=== PATIENT | female | born 1965 | race Caucasian/White ===

== ENCOUNTER 2019-04-30 23:23 | Inpatient (IN) | payer BC ==
[2019-04-30] MEDS ORDERED: Fentanyl 100 MCG/2 ML VIAL ONE (23:41)
[2019-05-01 01:15] VITALS: BMI 34.3
[2019-05-01] MEDS: Sodium Chloride 0.45% 1,000 ML IV SCH ×2 (01:44→15:37)
[2019-05-01] MEDS: MEROPENEM 1 GM/50 ML 1 GM in Premix Bag 1 BAG IVPB SCH ×2 (01:45→15:37)
[2019-05-01 04:50] LABS: #Eosinphils 0.1 thou/uL (0.0-0.7); #Lymphocytes 2.3 thou/uL (1.20-3.40); #Monocytes 0.9 thou/uL (0.11-0.59); #Neutrophils 8.3 thou/uL (1.40-6.50); %Basophils 0.3 % (0.0-1.0); %Eosinophils 1.1 % (0.0-10.0); %Lymphocytes 19.5 % (21.0-51.0); %Monocytes 7.6 % (0.0-10.0); %Neutrophils 71.5 % (42.0-75.0); Hemoglobin 11.8 g/dL (12.0-16.0); Mean Corpuscular HGB CONC 34.8 g/dL (32.0-36.0); Mean Corpuscular Hemoglobin 32.3 pg (27.0-31.0); Mean Corpuscular Volume 92.6 fL (78.0-98.0); Mean Platelet Volume 7.1 fL (7.4-10.4); Platelet Count 335 thou/uL (130-400); RBC Distribution Width 11.8 % (11.5-14.5); Red Blood Cell (RBC) Count 3.66 mill/uL (4.20-5.40); White Blood Cell (WBC) Count 11.7 thou/uL (4.8-10.8)
[2019-05-01] MEDS: Morphine 2 MG/ML SYRINGE SLOW IVP PRN ×2 (05:45→07:38)
[2019-05-01 06:55] LABS: #Eosinphils 0.2 thou/uL (0.0-0.7); #Lymphocytes 1.8 thou/uL (1.20-3.40); #Monocytes 0.9 thou/uL (0.11-0.59); #Neutrophils 8.6 thou/uL (1.40-6.50); %Basophils 0.3 % (0.0-1.0); %Eosinophils 1.4 % (0.0-10.0); %Lymphocytes 15.6 % (21.0-51.0); %Monocytes 8.1 % (0.0-10.0); %Neutrophils 74.6 % (42.0-75.0); Hemoglobin 11.7 g/dL (12.0-16.0); Mean Corpuscular HGB CONC 34.9 g/dL (32.0-36.0); Mean Corpuscular Hemoglobin 31.8 pg (27.0-31.0); Mean Corpuscular Volume 91.1 fL (78.0-98.0); Mean Platelet Volume 6.9 fL (7.4-10.4); Platelet Count 349 thou/uL (130-400); RBC Distribution Width 11.7 % (11.5-14.5); Red Blood Cell (RBC) Count 3.69 mill/uL (4.20-5.40); White Blood Cell (WBC) Count 11.5 thou/uL (4.8-10.8)
--- NOTE | 2019-05-01 08:22 | HP ---
CHIEF COMPLAINT: Severe abdominal pain. HISTORY OF PRESENT ILLNESS: This is a 53-year-old diabetic female, who says she has had gastroparesis for many years and she had episodes of this, which she describes as epigastric pain, belching of very foul-smelling gas. Then on and Wednesday, she started having some suprapubic pain. Wednesday, it became much worse. Then, she developed some fever. Last night after a bowel movement, it became even worse. She went to the emergency room. Last colonoscopy was 2 to 3 years ago. Mother had colon cancer. This colonoscopy was done at [facility] [place]. She has not eaten anything in 3 days. Her blood sugar was as high as 400. PAST MEDICAL HISTORY: Diabetes, obesity, hypertension, and hyperlipidemia. PAST SURGICAL HISTORY: Hysterectomy, bladder suspension, carpal tunnel, ulnar transposition, and bilateral tubal ligation. MEDICATIONS: 1. Losartan. 2. Fenofibrate. 3. Zetia. 4. Venlafaxine. 5. Atorvastatin. 6. Trulicity. 7. Humulin. ALLERGIES: SHE HAS ALLERGIES TO VERMOX FOR WORMS AND ACTOS. SOCIAL HISTORY: She is . 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 Smokes 1 pack per day. Rare alcohol. FAMILY HISTORY: Heart disease and stroke. PHYSICAL EXAMINATION: VITAL SIGNS: Her temperature is 99.9, pulse 80, and blood pressure 119/69. GENERAL: Obese female, in minimal distress. HEENT: Unremarkable. LUNGS: Clear. HEART: Regular rate and rhythm. ABDOMEN: Obese, soft. She has epigastric hernia. She is diffusely tender with peritoneal signs. LABORATORY DATA: Her white count is 11.7, H and H of 11 and 33, and platelet count 335. Her sodium is 134, potassium 4, chloride 98, creatinine 1.5, and glucose 416. LFTs are normal. Urinalysis is unremarkable. IMAGING DATA: Her CT scan shows diffuse free air with what appears to be inflammation in the pelvis consistent with perforated diverticulum. ASSESSMENT: Perforated diverticulitis with peritonitis. PLAN: Laparotomy, sigmoid colon resection, and diverting ileostomy. Job ID: [id number]
[2019-05-01] MEDS ORDERED: Midazolam HCl 2 mg/2 ml Vial ONE (08:31)
[2019-05-01] MEDS ORDERED: Fentanyl 100 MCG/2 ML VIAL ONE ×3 (08:31→11:48)
[2019-05-01] MEDS ORDERED: Meropenem 2 GM in Sodium Chloride 0.9% 100 ML IVPB SCH (09:00)
[2019-05-01] MEDS ORDERED: Promethazine HCl 25 MG/ML VIAL IM PRN ×3 (09:57→12:47)
[2019-05-01] MEDS ORDERED: Ondansetron HCl/PF 4 MG/2 ML Vial IVP PRN (09:57)
[2019-05-01] MEDS ORDERED: Promethazine HCl 25 MG/ML VIAL SLOW IVP PRN (09:57)
[2019-05-01] MEDS ORDERED: Insulin Regular 300 UNITS/3 ML VIAL ONE (10:40)
[2019-05-01] MEDS ORDERED: Neomycin-Polymyxin 1 ML AMP ONE (10:43)
[2019-05-01] MEDS ORDERED: hydrALAZINE 20 MG/ML VIAL SLOW IVP PRN (11:35)
[2019-05-01] MEDS ORDERED: Ondansetron PF 4 MG/2 ML Vial IVP PRN (11:35)
[2019-05-01] MEDS ORDERED: Insulin Regular 300 UNITS/3 ML VIAL SC PRN ×2 (11:35→12:27)
--- NOTE | 2019-05-01 12:23 | OP ---
DATE OF PROCEDURE: 05/01/2019 PREOPERATIVE DIAGNOSIS: Perforated viscus with diverticulitis. PROCEDURES PERFORMED: Exploratory laparotomy, sigmoid colectomy, lysis of adhesions, loop ileostomy. INDICATIONS: A 53-year-old female, who presented with a 24-hour history of severe abdominal pain and a CT scan showing free air as well as inflammation in the pelvis and some small bowel dilatation. FINDINGS: Ruptured sigmoid diverticulitis, generalized peritonitis, small bowel obstruction. DESCRIPTION OF PROCEDURE: After informed consent was obtained, the patient was taken to the operating room, given general endotracheal anesthesia, placed in the supine position. Abdomen was prepped and draped in usual fashion. A low midline incision was performed. Subcu divided sharply. The fascia was incised with a 10-blade. There was free air upon entering the peritoneal cavity. The abdomen was explored. There was some quite a bit of fluid in the pelvis and kind of interloop. Small bowel was attached to this inflamed area, that was down along the bladder anteriorly. This was able to be digitally. The colon was stuck to the bladder. Retraction was achieved with a Bookwalter retractor and a lysis of adhesion was performed. The sigmoid colon was from the bladder using blunt and sharp dissection. The white line of Toldt was incised. I was able to find quite a bit of distal unaffected colon in the lower sigmoid, this was divided utilizing a contour stapler. Then, proximally divided with a contour stapler. Then, the mesentery divided with the LigaSure. Primary end-to-end anastomosis was performed utilizing interrupted single layer of 3-0 Vicryl suture. The mesentery was closed with interrupted 3-0 Vicryl. The abdomen was thoroughly irrigated with saline. Hemostasis was assured. Then, the cecum was found, terminal ileum found, and a loop of ileum was found. A Santy was placed here. A circular skin incision was performed in the right lower quadrant. Subcu divided sharply. The fascia incised, and 3-finger dilatation performed. The Santy was then inserted through this opening. The ileum was grasped and was sutured to the posterior fascia with interrupted 3-0 Vicryl suture. The abdomen was inspected. Hemostasis was assured. The omentum placed anteriorly. The fascia was closed with a running loop #1 PDS, subcu irrigated, then the skin closed with skin saeid and jameson of Telfa. This was then bandaged off, and the ileum was then sutured to the anterior fascia with interrupted 3-0 Vicryl. The ileum was opened transversely with the electrocautery, and then, matured with interrupted 3-0 Vicryl suture. A wafer and bag applied. Sterile bandage applied on the midline. The patient tolerated the procedure well, transferred to Recovery in good condition. Job ID: [id number]
[2019-05-01] MEDS ORDERED: Dextrose 50% Abboject 50 ML SYRINGE SLOW IVP PRN (12:27)
[2019-05-01] MEDS ORDERED: Dextrose 5% in Water 1,000 ML IV PRN (12:27)
[2019-05-01] MEDS ORDERED: HUMULIN R 100 UNITS in Sodium Chloride 0.9% 100 ML IVPB SCH (12:27)
[2019-05-01] MEDS ORDERED: Zolpidem Tartrate 5 MG TAB PO PRN (12:47)
[2019-05-01] MEDS ORDERED: Naloxone HCl 0.4 mg/ml Vial IV PRN (12:47)
[2019-05-01] MEDS ORDERED: diphenhydrAMINE 50 MG/ML VIAL IVP PRN (12:47)
[2019-05-01] MEDS ORDERED: fentaNYL Citrate/PF 2,000 MCG in Sodium Chloride 0.9% 60 ML IV PRN (12:47)
[2019-05-01] MEDS ORDERED: diphenhydrAMINE 50 MG/ML VIAL IM PRN (12:47)
[2019-05-01] MEDS ORDERED: Communication Order-Pharmacy FS SCH (13:00)
[2019-05-01] MEDS: Sodium Chloride 0.9% 1,000 ML IV SCH (15:37)
[2019-05-01] MEDS: Acetaminophen 1,000 MG in Premix Bag 1 BAG IVPB SCH ×2 (15:37→17:37)
[2019-05-01] MEDS: Ketorolac Tromethamine 30 MG/ML VIAL IVP SCH ×2 (15:38→17:37)
[2019-05-01] MEDS ORDERED: Bupivacaine HCl 0.5%/Epinephrine 1:200,000/PF 30 ml Vial ONE (16:36)
[2019-05-01] MEDS ORDERED: Succinylcholine Chloride 20 MG/ML 10 ml SYRINGE FS ONE (17:22)
[2019-05-01] MEDS ORDERED: Rocuronium Bromide 10 MG/ML (10ML VIAL) ONE (17:22)
[2019-05-01] MEDS ORDERED: Glycopyrrolate 0.2 MG/ML 5 ML SYRINGE ONE (17:22)
[2019-05-01] MEDS ORDERED: PROPOFOL 200 MG/20 ML VIAL ONE (17:22)
[2019-05-01] MEDS ORDERED: Ondansetron PF 4 MG/2 ML Vial ONE (17:22)
[2019-05-01] MEDS ORDERED: Ketorolac Tromethamine 30 MG/ML VIAL ONE (17:22)
[2019-05-01] MEDS ORDERED: PHENYLEPHRINE-NS 100 MCG/ML 10 ML SYRINGE ONE (17:22)
[2019-05-01] MEDS: Famotidine 20 MG TAB PO SCH (21:54)
[2019-05-01] MEDS: Famotidine/PF 20 mg/2ml Vial SLOW IVP SCH (21:55)
[2019-05-02] MEDS: Ketorolac Tromethamine 30 MG/ML VIAL IVP SCH ×5 (00:40→23:53)
[2019-05-02] MEDS: Acetaminophen 1,000 MG in Premix Bag 1 BAG IVPB SCH ×2 (00:41→05:43)
[2019-05-02] MEDS: Sodium Chloride 0.9% 1,000 ML IV SCH ×5 (00:42→23:55)
[2019-05-02 05:05] LABS: #Eosinphils 0.3 thou/uL (0.0-0.7); #Lymphocytes 0.8 thou/uL (1.20-3.40); #Monocytes 0.6 thou/uL (0.11-0.59); #Neutrophils 5.9 thou/uL (1.40-6.50); %Basophils 0.4 % (0.0-1.0); %Eosinophils 4.5 % (0.0-10.0); %Lymphocytes 10.7 % (21.0-51.0); %Monocytes 7.3 % (0.0-10.0); %Neutrophils 77.1 % (42.0-75.0); Hemoglobin 10.8 g/dL (12.0-16.0); Mean Corpuscular HGB CONC 33.9 g/dL (32.0-36.0); Mean Corpuscular Hemoglobin 32.2 pg (27.0-31.0); Mean Corpuscular Volume 94.9 fL (78.0-98.0); Platelet Count 328 thou/uL (130-400); RBC Distribution Width 11.9 % (11.5-14.5); Red Blood Cell (RBC) Count 3.35 mill/uL (4.20-5.40); White Blood Cell (WBC) Count 7.6 thou/uL (4.8-10.8)
[2019-05-02 05:43] LABS: Anion Gap 10 mmol/L (10-20); BUN (Urea Nitrogen) 15 mg/dL (9.8-20.1); Calc. Creatinine Clearance 84 mL/min (70-130); Calcium 7.8 mg/dL (7.8-10.44); Carbon Dioxide 23 mmol/L (22-29); Chloride 109 mmol/L (98-107); Estimated GFR-MDRD 52; Glucose 151 mg/dL (70-105); Potassium 3.8 mmol/L (3.5-5.1); Sodium 138 mmol/L (136-145)
[2019-05-02] MEDS ORDERED: Enoxaparin Sodium 40 MG/0.4 ML SYRINGE SC SCH (09:00)
[2019-05-02] MEDS: Famotidine 20 MG TAB PO SCH ×2 (09:21→20:55)
[2019-05-02] MEDS: Famotidine/PF 20 mg/2ml Vial SLOW IVP SCH ×2 (09:29→20:55)
[2019-05-02] MEDS: Ondansetron PF 4 MG/2 ML Vial IVP PRN ×2 (12:13→23:58)
[2019-05-02] MEDS ORDERED: Dextrose 50% Abboject 50 ML SYRINGE SLOW IVP PRN (14:56)
[2019-05-02] MEDS ORDERED: Dextrose 5% in Water 1,000 ML IV PRN (14:56)
[2019-05-02] MEDS: MEROPENEM 1 GM/50 ML 1 GM in Premix Bag 1 BAG IVPB SCH (20:45)
[2019-05-02] MEDS: Insulin Glargine 15 UNITS in Pre-Filled Syringe SC SCH (20:52)
[2019-05-02] MEDS: diphenhydrAMINE 25 MG CAP PO PRN (20:55)
--- NOTE | 2019-05-02 21:02 | PDOC.HOSPP ---
- Subjective Encounter Date: 05/02/19 Encounter Time: 20:00 Subjective: awake, has lower abd pain, no nausea, is tolerating liq diet No chest pain or sob or palp. Has chronic cough due to smoking - Objective Vital Signs & Weight: Vital Signs (12 hours) Temp 05/02/19 20:00 98.0 F 05/02/19 16:00 98.6 F 05/02/19 12:00 98.5 F Weight Weight 200 lb Most Recent Monitor Data Heart Rate from ECG 81 NIBP 127/71 NIBP BP-Mean 89 Respiration from ECG 17 SpO2 96 I&O: 05/01/19 05/02/19 05/03/19 06:59 06:59 06:59 Intake Total 676 2012.3 1306.5 Output Total 510 630 Balance 676 1502.3 676.5 Result Diagrams: 05/02/19 04:19 05/02/19 04:19 Additional Labs: Accuchecks 05/02/19 05/02/19 05/02/19 18:57 16:38 15:42 POC Glucose 161 H 110 114 H 05/02/19 05/02/19 05/02/19 14:36 13:18 11:59 POC Glucose 125 H 146 H 133 H 05/02/19 05/02/19 05/02/19 10:23 09:19 08:23 POC Glucose 131 H 109 120 H 05/02/19 05/02/19 05/02/19 07:02 06:03 05:11 POC Glucose 127 H 122 H 144 H 05/02/19 05/02/19 05/02/19 03:58 03:09 01:59 POC Glucose 166 H 188 H 167 H 05/02/19 05/01/19 05/01/19 01:09 23:58 23:02 POC Glucose 101 110 133 H 05/01/19 05/01/19 22:06 20:59 POC Glucose 133 H 141 H Hospitalist ROS - Medication Medications: Active Medications Generic Name Dose Route Start Last Admin Trade Name Freq PRN Reason Stop Dose Admin Diphenhydramine HCl 25 mg 05/01/19 12:47 05/02/19 20:55 Benadryl PO 25 mg Q3H PRN Administration Itching Enoxaparin Sodium 40 mg 05/02/19 09:00 05/02/19 10:16 Lovenox SC 40 mg 0900 GOKUL Administration Famotidine 20 mg 05/01/19 21:00 05/02/19 20:55 Pepcid PO 20 mg Q12HR GOKUL Administration Famotidine 20 mg 05/01/19 21:00 05/02/19 20:55 Pepcid SLOW IVP Not Given Q12HR GOKUL Sodium Chloride 1,000 mls @ 120 mls/hr 05/01/19 11:45 05/02/19 18:58 Normal Saline 0.9% IV 1,000 mls .Q8H20M GOKUL Administration Fentanyl Citrate 2,000 mcg/ 100 mls @ 0 mls/hr 05/01/19 12:47 05/02/19 20:39 Sodium Chloride IV 100 mls INF PRN Administration Pain As Directed Insulin Glargine 15 units/ 0.15 mls @ 0 mls/hr 05/02/19 21:00 05/02/19 20:52 Miscellaneous Medication SC 0.15 mls HS GOKUL Administration Meropenem 1 gm/ Device 50 mls @ 100 mls/hr 05/02/19 20:00 05/02/19 20:45 IVPB 50 mls 0400,1200,2000 GOKUL Administration Ketorolac Tromethamine 15 mg 05/01/19 12:00 05/02/19 18:58 Toradol IVP 05/04/19 12:01 15 mg Q6HR GOKUL Administration Ondansetron HCl 4 mg 05/01/19 12:47 05/02/19 12:13 Zofran IVP 4 mg Q6H PRN Administration Nausea/Vomiting - Exam General Appearance: awake alert Eye: PERRL, anicteric sclera ENT: no oropharyngeal lesions, dry oral mucosa Neck: supple, no JVD Heart: RRR, no murmur Respiratory: no wheezes, no rales, rhonchi Gastrointestinal: soft, no rigidity Gastrointestinal - other findings: ileostomy bag is empty, right quadrant abd wall edema a bit likely position Extremities: no cyanosis, no edema Neurological: cranial nerve grossly intact, no focal deficits Psychiatric: normal affect, A&O x 3 Hosp A/P (1) Perforation of sigmoid colon due to diverticulitis Code(s): K57.20 - DVTRCLI OF LG INT W PERFORATION AND ABSCESS W/O BLEEDING Status: Acute (2) diverting ileostomy and sigmoidectomy Status: Acute (3) Tobacco abuse Code(s): Z72.0 - TOBACCO USE Status: Chronic (4) DM type 2 (diabetes mellitus, type 2) Status: Chronic Qualifiers: Diabetes mellitus residential insulin use: without marketing project manager use (5) HTN (hypertension) Code(s): I10 - ESSENTIAL (PRIMARY) HYPERTENSION Status: Chronic Qualifiers: Hypertension type: essential hypertension Qualified Code(s): I10 - Essential (primary) hypertension (6) Dyslipidemia Code(s): E78.5 - HYPERLIPIDEMIA, UNSPECIFIED Status: Chronic (7) Obesity (BMI 30.0-34.9) Code(s): E66.9 - OBESITY, UNSPECIFIED Status: Chronic - Plan was on iv insulin post op from yesterday till this afternoon is currently on lantus with reg insulin coverage is being transfered to med surg floor continue gentle iv hydration, meropenem, duonebs, toradol prn, fentanyl laboratory equipment cleaner i.spirometry early ambulation will f/u
[2019-05-02] MEDS ORDERED: Meropenem 1 GM in Sodium Chloride 0.9% 100 ML IVPB SCH (22:00)
[2019-05-03] MEDS: Insulin Regular 300 UNITS/3 ML VIAL SC PRN ×5 (00:53→22:03)
[2019-05-03] MEDS: MEROPENEM 1 GM/50 ML 1 GM in Premix Bag 1 BAG IVPB SCH ×3 (03:01→20:14)
[2019-05-03] MEDS: Sodium Chloride 0.9% 1,000 ML IV SCH ×3 (03:02→23:22)
[2019-05-03] MEDS: Ketorolac Tromethamine 30 MG/ML VIAL IVP SCH ×3 (05:31→17:06)
[2019-05-03 07:32] LABS: #Eosinphils 0.5 thou/uL (0.0-0.7); #Lymphocytes 0.8 thou/uL (1.20-3.40); #Monocytes 0.5 thou/uL (0.11-0.59); %Basophils 0.2 % (0.0-1.0); %Eosinophils 8.8 % (0.0-10.0); %Lymphocytes 13.5 % (21.0-51.0); %Monocytes 8.1 % (0.0-10.0); %Neutrophils 69.5 % (42.0-75.0); Hemoglobin 10.2 g/dL (12.0-16.0); Mean Corpuscular HGB CONC 34.3 g/dL (32.0-36.0); Mean Corpuscular Hemoglobin 31.9 pg (27.0-31.0); Mean Corpuscular Volume 93.2 fL (78.0-98.0); Platelet Count 336 thou/uL (130-400); RBC Distribution Width 11.7 % (11.5-14.5); Red Blood Cell (RBC) Count 3.18 mill/uL (4.20-5.40); White Blood Cell (WBC) Count 5.8 thou/uL (4.8-10.8)
[2019-05-03 07:56] LABS: Hemoglobin A1c 8.4 % (4.0-6.0)
[2019-05-03 08:05] LABS: ALT (SGPT) 23 U/L (8-55); AST (SGOT) 37 U/L (5-34); Alkaline Phosphatase 54 U/L (40-150); Anion Gap 14 mmol/L (10-20); BUN (Urea Nitrogen) 11 mg/dL (9.8-20.1); Bilirubin, Total 0.3 mg/dL (0.2-1.2); Calc. Creatinine Clearance 94 mL/min (70-130); Calcium 7.8 mg/dL (7.8-10.44); Carbon Dioxide 18 mmol/L (22-29); Chloride 108 mmol/L (98-107); Estimated GFR-MDRD 60; Globulin 2.5 g/dL (2.4-3.5); Glucose 185 mg/dL (70-105); Potassium 3.9 mmol/L (3.5-5.1); Protein, Total 5.5 g/dL (6.0-8.3); Sodium 136 mmol/L (136-145)
[2019-05-03] MEDS: Famotidine 20 MG TAB PO SCH (08:46)
[2019-05-03] MEDS: Enoxaparin Sodium 40 MG/0.4 ML SYRINGE SC SCH (08:46)
[2019-05-03] MEDS ORDERED: traMADol HCl 50 MG TAB PO PRN ×2 (10:10)
[2019-05-03] MEDS ORDERED: Fentanyl 100 MCG/2 ML VIAL SLOW IVP PRN (10:11)
--- NOTE | 2019-05-03 11:16 | PRG ---
DATE OF SERVICE: 05/03/2019 SUBJECTIVE: The patient is feeling much better. Her ostomy is working well. She is tolerating liquids. No nausea or vomiting. OBJECTIVE: VITAL SIGNS: Temperature is 97.1, pulse 75, and blood pressure 164/68. GENERAL: She is awake and alert. LUNGS: Clear. ABDOMEN: Soft, nondistended, and nontender. The wound redressed. The ostomy is healthy and putting out fluid. ASSESSMENT: Doing well. PLAN: Advance to full liquids. Hep-Lock IV. Job ID: [id number]
--- NOTE | 2019-05-03 13:05 | PDOC.HOSPP ---
- Subjective Encounter Date: 05/03/19 Encounter Time: 12:00 Subjective: no nausea or vomiting is tolerating liq diet has ambulated in hallway - Objective Vital Signs & Weight: Vital Signs (12 hours) Temp Pulse Resp BP Pulse Ox 05/03/19 12:58 98 16 95 05/03/19 11:13 98.2 F 108 H 20 97 05/03/19 11:09 142/60 H 05/03/19 08:00 164/68 H 05/03/19 07:35 97.1 F L 75 20 95 05/03/19 07:31 97 05/03/19 07:26 70 14 05/03/19 04:00 84 18 96 05/03/19 03:35 97.6 F Weight Weight 200 lb Most Recent Monitor Data Heart Rate from ECG 81 NIBP 141/75 NIBP BP-Mean 97 Respiration from ECG 17 SpO2 96 I&O: 05/02/19 05/03/19 05/04/19 06:59 06:59 06:59 Intake Total 2012.3 3566.5 600 Output Total 510 1205 110 Balance 1502.3 2361.5 490 Result Diagrams: 05/03/19 07:26 05/03/19 07:26 Additional Labs: Accuchecks 05/03/19 05/03/19 05/03/19 12:15 05:25 00:45 POC Glucose 338 H 176 H 217 H 05/02/19 05/02/19 05/02/19 18:57 16:38 15:42 POC Glucose 161 H 110 114 H 05/02/19 05/02/19 14:36 13:18 POC Glucose 125 H 146 H Hospitalist ROS - Medication Medications: Active Medications Generic Name Dose Route Start Last Admin Trade Name Freq PRN Reason Stop Dose Admin Albuterol/Ipratropium 3 ml 05/03/19 01:00 05/03/19 12:58 Duoneb NEB 3 ml [id number] GOKUL Administration Diphenhydramine HCl 25 mg 05/01/19 12:47 05/02/19 20:55 Benadryl PO 25 mg Q3H PRN Administration Itching Enoxaparin Sodium 40 mg 05/03/19 09:00 05/03/19 08:46 Lovenox SC 40 mg 0900 GOKUL Administration Sodium Chloride 1,000 mls @ 120 mls/hr 05/01/19 11:45 05/03/19 03:02 Normal Saline 0.9% IV 1,000 mls .Q8H20M GOKUL Administration Fentanyl Citrate 2,000 mcg/ 100 mls @ 0 mls/hr 05/01/19 12:47 05/02/19 20:39 Sodium Chloride IV 100 mls INF PRN Administration Pain As Directed Insulin Glargine 15 units/ 0.15 mls @ 0 mls/hr 05/02/19 21:00 05/02/19 20:52 Miscellaneous Medication SC 0.15 mls HS GOKUL Administration Meropenem 1 gm/ Device 50 mls @ 100 mls/hr 05/02/19 20:00 05/03/19 11:46 IVPB 50 mls 0400,1200,2000 GOKUL Administration Insulin Human Regular 0 units 05/02/19 14:56 05/03/19 12:20 Humulin R SC 8 unit .MODERATE SLIDING SC PRN Administration Moderate Correctional Scale Ketorolac Tromethamine 15 mg 05/01/19 12:00 05/03/19 11:46 Toradol IVP 05/04/19 12:01 15 mg Q6HR GOKUL Administration Ondansetron HCl 4 mg 05/01/19 12:47 05/02/19 23:58 Zofran IVP 4 mg Q6H PRN Administration Nausea/Vomiting - Exam General Appearance: NAD, awake alert Eye: PERRL, anicteric sclera ENT: no oropharyngeal lesions, moist mucosa Neck: supple, no JVD Heart: RRR, no murmur Respiratory: no wheezes, no rales Gastrointestinal: soft, non-distended Gastrointestinal - other findings: ileostomy has green liq Extremities: no cyanosis, no edema Neurological: cranial nerve grossly intact, no focal deficits Psychiatric: normal affect, A&O x 3 Hosp A/P (1) Perforation of sigmoid colon due to diverticulitis Code(s): K57.20 - DVTRCLI OF LG INT W PERFORATION AND ABSCESS W/O BLEEDING Status: Acute (2) diverting ileostomy and sigmoidectomy Status: Acute (3) Tobacco abuse Code(s): Z72.0 - TOBACCO USE Status: Chronic (4) DM type 2 (diabetes mellitus, type 2) Status: Chronic Qualifiers: Diabetes mellitus correction insulin use: without ferry terminal supervisor use (5) HTN (hypertension) Code(s): I10 - ESSENTIAL (PRIMARY) HYPERTENSION Status: Chronic Qualifiers: Hypertension type: essential hypertension Qualified Code(s): I10 - Essential (primary) hypertension (6) Dyslipidemia Code(s): E78.5 - HYPERLIPIDEMIA, UNSPECIFIED Status: Chronic (7) Obesity (BMI 30.0-34.9) Code(s): E66.9 - OBESITY, UNSPECIFIED Status: Chronic - Plan increase lantus to bid 15 u, with reg insulin coverage continue gentle iv hydration, meropenem, duonebs, toradol prn, fentanyl drafting detailer i.spirometry will f/u will likely need 10 days of antibiotics for peritonitis/perforation.
--- NOTE | 2019-05-03 16:39 | EKG ---
Test Reason : PREOP Blood Pressure : / mmHG Vent. Rate : 073 BPM Atrial Rate : 073 BPM P-R Int : 144 ms QRS Dur : 096 ms QT Int : 416 ms P-R-T Axes : 062 071 060 degrees QTc Int : 458 ms Normal sinus rhythm with sinus arrhythmia Normal ECG No previous ECGs available Confirmed by DR. Cathy WALKER ([id number]) on 05/03/2019 4:39:15 PM Referred By: RAVEN Confirmed By:DR. Cathy WALKER
[2019-05-03] MEDS ORDERED: Lidocaine 2% Viscous Solution 10 ML, Aluminum & Magnesium Hydroxide 30 ML SSW SCH (21:45)
[2019-05-03] MEDS ORDERED: Dicyclomine 10 MG CAP PO SCH (21:45)
[2019-05-03] MEDS: Insulin Glargine 15 UNITS in Pre-Filled Syringe SC SCH (22:01)
[2019-05-04] MEDS: Ketorolac Tromethamine 30 MG/ML VIAL IVP SCH ×3 (00:23→11:39)
[2019-05-04] MEDS: Ondansetron PF 4 MG/2 ML Vial IVP PRN (00:24)
[2019-05-04] MEDS: MEROPENEM 1 GM/50 ML 1 GM in Premix Bag 1 BAG IVPB SCH ×3 (03:29→20:34)
[2019-05-04] MEDS: Sodium Chloride 0.9% 1,000 ML IV SCH ×3 (06:30→22:09)
[2019-05-04] MEDS: Insulin Regular 300 UNITS/3 ML VIAL SC PRN ×3 (06:31→16:19)
[2019-05-04] MEDS ORDERED: Insulin Glargine 15 UNITS in Pre-Filled Syringe 1 EACH SC SCH (09:00)
[2019-05-04] MEDS: Enoxaparin Sodium 40 MG/0.4 ML SYRINGE SC SCH (09:47)
--- NOTE | 2019-05-04 10:51 | PRG ---
DATE OF SERVICE: 05/04/2019 SUBJECTIVE: The patient says that she is complaining of some reflux, but otherwise doing well. Her pain is about a 5/10, really no nausea. Her ostomy is working well. She is tolerating full liquids. OBJECTIVE: VITAL SIGNS: Temperature is 99.5, pulse 82, blood pressure 152/85. GENERAL: She is awake, alert, in no apparent distress. HEENT: Unremarkable. LUNGS: Clear. HEART: Regular rate and rhythm. ABDOMEN: Obese and soft. The jameson were removed. The incision is healing well. No evidence of infection. Ostomy is functioning well. ASSESSMENT: Doing well. PLAN: We will go ahead and restart her home medications and possibly discharge tomorrow. We will add some Protonix. Job ID: [id number]
[2019-05-04] MEDS ORDERED: Calcium Carbonate 500 MG ChewTAB PO PRN (11:54)
--- NOTE | 2019-05-04 12:44 | PDOC.HOSPP ---
- Subjective Encounter Date: 05/04/19 Encounter Time: 11:00 Subjective: no nausea, tolerating liq diet has increased reflux symptoms, tried maalox along protinix bid is amb in hallway - Objective Vital Signs & Weight: Vital Signs (12 hours) Temp Pulse Resp BP Pulse Ox 05/04/19 10:38 98.8 F 91 16 143/86 H 99 05/04/19 08:50 95 05/04/19 08:09 99.5 F 82 16 152/85 H 95 05/04/19 07:11 83 16 94 L 05/04/19 03:53 98.9 F 83 16 166/84 H 98 Weight Weight 200 lb Most Recent Monitor Data Heart Rate from ECG 81 NIBP 141/75 NIBP BP-Mean 97 Respiration from ECG 17 SpO2 96 I&O: 05/03/19 05/04/19 05/05/19 06:59 06:59 06:59 Intake Total 3566.5 1850 Output Total 1205 840 Balance 2361.5 1010 Result Diagrams: 05/03/19 07:26 05/03/19 07:26 Additional Labs: Accuchecks 05/04/19 05/04/19 05/03/19 10:46 05:17 21:54 POC Glucose 360 H 281 H 308 H Hospitalist ROS - Medication Medications: Active Medications Generic Name Dose Route Start Last Admin Trade Name Freq PRN Reason Stop Dose Admin Albuterol/Ipratropium 3 ml 05/03/19 01:00 05/04/19 07:11 Duoneb NEB 3 ml [id number] GOKUL Administration Diphenhydramine HCl 25 mg 05/01/19 12:47 05/02/19 20:55 Benadryl PO 25 mg Q3H PRN Administration Itching Enoxaparin Sodium 40 mg 05/03/19 09:00 05/04/19 09:47 Lovenox SC 40 mg 0900 GOKUL Administration Sodium Chloride 1,000 mls @ 120 mls/hr 05/01/19 11:45 05/04/19 06:30 Normal Saline 0.9% IV Not Given .Q8H20M GOKUL Fentanyl Citrate 2,000 mcg/ 100 mls @ 0 mls/hr 05/01/19 12:47 05/02/19 20:39 Sodium Chloride IV 100 mls INF PRN Administration Pain As Directed Meropenem 1 gm/ Device 50 mls @ 100 mls/hr 05/02/19 20:00 05/04/19 11:39 IVPB 50 mls 0400,1200,2000 GOKUL Administration Insulin Human Regular 0 units 05/02/19 14:56 05/04/19 11:40 Humulin R SC 10 unit .MODERATE SLIDING SC PRN Administration Moderate Correctional Scale Ondansetron HCl 4 mg 05/01/19 12:47 05/04/19 00:24 Zofran IVP 4 mg Q6H PRN Administration Nausea/Vomiting Sodium Chloride 10 ml 05/01/19 01:14 05/03/19 17:07 Flush - Normal Saline IVF 10 ml PRN PRN Administration Saline Flush - Exam General Appearance: NAD, awake alert Eye: anicteric sclera ENT: no oropharyngeal lesions, moist mucosa Neck: supple, no JVD Heart: RRR, no murmur Respiratory: no wheezes, no rales Gastrointestinal: soft, non-distended Gastrointestinal - other findings: ileostomy has green liq Extremities: no cyanosis, no edema Neurological: cranial nerve grossly intact, no focal deficits Psychiatric: normal affect, A&O x 3 Hosp A/P (1) Perforation of sigmoid colon due to diverticulitis Code(s): K57.20 - DVTRCLI OF LG INT W PERFORATION AND ABSCESS W/O BLEEDING Status: Acute (2) diverting ileostomy and sigmoidectomy Status: Acute (3) Tobacco abuse Code(s): Z72.0 - TOBACCO USE Status: Chronic (4) DM type 2 (diabetes mellitus, type 2) Status: Chronic Qualifiers: Diabetes mellitus usp insulin use: without usp use (5) HTN (hypertension) Code(s): I10 - ESSENTIAL (PRIMARY) HYPERTENSION Status: Chronic Qualifiers: Hypertension type: essential hypertension Qualified Code(s): I10 - Essential (primary) hypertension (6) Dyslipidemia Code(s): E78.5 - HYPERLIPIDEMIA, UNSPECIFIED Status: Chronic (7) Obesity (BMI 30.0-34.9) Code(s): E66.9 - OBESITY, UNSPECIFIED Status: Chronic - Plan increase lantus to 30 u bid, with reg insulin coverage continue gentle iv hydration, meropenem, duonebs, toradol prn i.spirometry will likely need 10 days of antibiotics for peritonitis/perforation, per gen surg adv on home dose of losartan/hctz
[2019-05-04] MEDS: Atorvastatin Calcium 40 MG TAB PO SCH (20:35)
[2019-05-04] MEDS: diphenhydrAMINE 25 MG CAP PO PRN (20:35)
[2019-05-04] MEDS: Insulin Glargine 30 UNITS in Pre-Filled Syringe 1 EACH SC SCH (20:36)
[2019-05-05] MEDS: HYDROcodone/Acetaminophen 10/325 mg Tablet PO PRN ×3 (03:09→17:48)
[2019-05-05] MEDS: MEROPENEM 1 GM/50 ML 1 GM in Premix Bag 1 BAG IVPB SCH ×3 (03:09→21:08)
[2019-05-05 09:20] LABS: #Eosinphils 0.5 thou/uL (0.0-0.7); #Lymphocytes 1.4 thou/uL (1.20-3.40); #Monocytes 0.4 thou/uL (0.11-0.59); %Basophils 0.5 % (0.0-1.0); %Eosinophils 8.9 % (0.0-10.0); %Lymphocytes 25.7 % (21.0-51.0); %Neutrophils 56.9 % (42.0-75.0); Mean Corpuscular HGB CONC 34.4 g/dL (32.0-36.0); Mean Corpuscular Hemoglobin 31.9 pg (27.0-31.0); Mean Corpuscular Volume 92.8 fL (78.0-98.0); Mean Platelet Volume 6.7 fL (7.4-10.4); Platelet Count 392 thou/uL (130-400); RBC Distribution Width 11.6 % (11.5-14.5); Red Blood Cell (RBC) Count 3.12 mill/uL (4.20-5.40); White Blood Cell (WBC) Count 5.3 thou/uL (4.8-10.8)
[2019-05-05] MEDS: Insulin Glargine 30 UNITS in Pre-Filled Syringe 1 EACH SC SCH ×2 (09:36→21:08)
[2019-05-05 09:41] LABS: ALT (SGPT) 24 U/L (8-55); AST (SGOT) 29 U/L (5-34); Alkaline Phosphatase 59 U/L (40-150); Anion Gap 9 mmol/L (10-20); BUN (Urea Nitrogen) 12 mg/dL (9.8-20.1); Bilirubin, Total 0.3 mg/dL (0.2-1.2); Calc. Creatinine Clearance 106 mL/min (70-130); Calcium 8.8 mg/dL (7.8-10.44); Carbon Dioxide 30 mmol/L (22-29); Chloride 104 mmol/L (98-107); Estimated GFR-MDRD 69; Globulin 2.4 g/dL (2.4-3.5); Glucose 229 mg/dL (70-105); Potassium 4.1 mmol/L (3.5-5.1); Protein, Total 5.4 g/dL (6.0-8.3); Sodium 139 mmol/L (136-145)
[2019-05-05] MEDS: Ezetimibe 10 MG TAB PO SCH (10:31)
[2019-05-05] MEDS: Losartan/Hydrochlorothiazide 100 mg/25 mg Tablet PO SCH (10:31)
[2019-05-05] MEDS: Fenofibrate 48 MG TAB PO SCH (10:31)
[2019-05-05] MEDS: Venlafaxine HCl XR 150 MG CAP PO SCH (10:32)
[2019-05-05] MEDS: Pantoprazole 40 MG VIAL IVP SCH (10:33)
[2019-05-05] MEDS: Insulin Regular 300 UNITS/3 ML VIAL SC PRN ×2 (11:17→17:48)
[2019-05-05] MEDS: Enoxaparin Sodium 40 MG/0.4 ML SYRINGE SC SCH (11:18)
--- NOTE | 2019-05-05 13:10 | PDOC.HOSPP ---
- Subjective Encounter Date: 05/05/19 Encounter Time: 09:00 Subjective: abd pain is better, no nausea or vomiting is ambulating well, tolerating liq diet - Objective Vital Signs & Weight: Vital Signs (12 hours) Temp Pulse Resp BP Pulse Ox 05/05/19 08:00 98.3 F 84 16 135/77 95 05/05/19 07:24 80 16 96 05/05/19 03:07 99.6 F 81 18 141/82 H 93 L 05/05/19 01:35 95 Weight Weight 200 lb Most Recent Monitor Data Heart Rate from ECG 81 NIBP 141/75 NIBP BP-Mean 97 Respiration from ECG 17 SpO2 96 I&O: 05/04/19 05/05/19 05/06/19 06:59 06:59 06:59 Intake Total 1850 2550 Output Total 840 1280 Balance 1010 1270 Result Diagrams: 05/05/19 08:47 05/05/19 08:47 Additional Labs: Accuchecks 05/05/19 05/05/19 05/04/19 11:11 06:10 20:33 POC Glucose 257 H 235 H 234 H 05/04/19 15:29 POC Glucose 296 H Hospitalist ROS - Medication Medications: Active Medications Generic Name Dose Route Start Last Admin Trade Name Freq PRN Reason Stop Dose Admin Hydrocodone Bitart/Acetaminophen 1 tab 05/03/19 10:09 05/05/19 03:09 [place]ak 10/325 PO 1 tab Q4H PRN Administration Pain (1-4) Hydrocodone Bitart/Acetaminophen 2 tab 05/03/19 10:10 05/05/19 09:25 Adak 10/325 PO 2 tab Q4H PRN Administration Pain (5-10) Albuterol/Ipratropium 3 ml 05/03/19 01:00 05/05/19 07:24 Duoneb NEB 3 ml [id number] GOKUL Administration Atorvastatin Calcium 80 mg 05/04/19 21:00 05/04/19 20:35 Lipitor PO 80 mg HS GOKUL Administration Diphenhydramine HCl 25 mg 05/01/19 12:47 05/04/19 20:35 Benadryl PO 25 mg Q3H PRN Administration Itching Ezetimibe 10 mg 05/05/19 09:00 05/05/19 10:31 Zetia PO 10 mg DAILY GOKUL Administration Enoxaparin Sodium 40 mg 05/03/19 09:00 05/05/19 11:18 Lovenox SC 40 mg 0900 GOKUL Administration Fenofibrate 48 mg 05/05/19 09:00 05/05/19 10:31 Tricor PO 48 mg DAILY GOKUL Administration HCTZ/Losartan Potassium 1 tab 05/05/19 09:00 05/05/19 10:31 Hyzaar 100/25 PO 1 tab DAILY GOKUL Administration Sodium Chloride 1,000 mls @ 120 mls/hr 05/01/19 11:45 05/04/19 22:09 Normal Saline 0.9% IV Not Given .Q8H20M GOKUL Fentanyl Citrate 2,000 mcg/ 100 mls @ 0 mls/hr 05/01/19 12:47 05/02/19 20:39 Sodium Chloride IV 100 mls INF PRN Administration Pain As Directed Meropenem 1 gm/ Device 50 mls @ 100 mls/hr 05/02/19 20:00 05/05/19 03:09 IVPB 50 mls 0400,1200,2000 GOKUL Administration Insulin Glargine 30 units/ 0.3 mls @ 0 mls/hr 05/04/19 21:00 05/05/19 09:36 Miscellaneous Medication SC 0.3 mls BID GOKUL Administration Insulin Human Regular 0 units 05/02/19 14:56 05/05/19 11:17 Humulin R SC 6 unit .MODERATE SLIDING SC PRN Administration Moderate Correctional Scale Ondansetron HCl 4 mg 05/01/19 12:47 05/04/19 00:24 Zofran IVP 4 mg Q6H PRN Administration Nausea/Vomiting Pantoprazole Sodium 40 mg 05/05/19 09:00 05/05/19 10:33 Protonix IVP 40 mg DAILY GOKUL Administration Sodium Chloride 10 ml 05/01/19 01:14 05/04/19 20:35 Flush - Normal Saline IVF 10 ml PRN PRN Administration Saline Flush Tramadol HCl 100 mg 05/03/19 10:10 05/04/19 16:11 Ultram PO 100 mg Q6H PRN Administration Pain (5-10) Venlafaxine HCl 150 mg 05/05/19 09:00 05/05/19 10:32 Effexor Xr PO 150 mg DAILY GOKUL Administration - Exam General Appearance: NAD, awake alert Eye: PERRL, anicteric sclera ENT: no oropharyngeal lesions, moist mucosa Neck: supple, no JVD Heart: RRR, no murmur Respiratory: no wheezes, no rales Gastrointestinal: soft, non-distended, normal bowel sounds, no rigidity Gastrointestinal - other findings: ileostomy has green liq Extremities: no cyanosis, no edema Neurological: cranial nerve grossly intact, no focal deficits Psychiatric: normal affect, A&O x 3 Hosp A/P (1) Perforation of sigmoid colon due to diverticulitis Code(s): K57.20 - DVTRCLI OF LG INT W PERFORATION AND ABSCESS W/O BLEEDING Status: Acute (2) diverting ileostomy and sigmoidectomy Status: Acute (3) Tobacco abuse Code(s): Z72.0 - TOBACCO USE Status: Chronic (4) DM type 2 (diabetes mellitus, type 2) Status: Chronic Qualifiers: Diabetes mellitus terminal operator insulin use: without terminal operator use (5) HTN (hypertension) Code(s): I10 - ESSENTIAL (PRIMARY) HYPERTENSION Status: Chronic Qualifiers: Hypertension type: essential hypertension Qualified Code(s): I10 - Essential (primary) hypertension (6) Dyslipidemia Code(s): E78.5 - HYPERLIPIDEMIA, UNSPECIFIED Status: Chronic (7) Obesity (BMI 30.0-34.9) Code(s): E66.9 - OBESITY, UNSPECIFIED Status: Chronic - Plan on lantus to 30 u bid, will add glipizide, with reg insulin coverage continue gentle iv hydration, meropenem, duonebs, toradol prn i.spirometry will likely need 10 days of antibiotics for peritonitis/perforation, per gen surg adv on home dose of losartan/hctz hemostable
--- NOTE | 2019-05-05 13:50 | PRG ---
DATE OF SERVICE: 05/05/2019 SUBJECTIVE: The patient feels pretty good. Minimal pain. Her ostomy is working well. No nausea or vomiting. She is tolerating full liquids. OBJECTIVE: VITAL SIGNS: Temperature 98.3, pulse 84, and blood pressure 135/77. GENERAL: She looks good. ABDOMEN: Incision is healing well. The ostomy looks like it is working well. Abdomen is soft and nondistended, just obese. Showed good output. Urinating well. LABORATORY DATA: Her white count 5.3, hemoglobin and hematocrit of 10 and 28, and platelet count 392. Electrolytes are fine, but her glucose is still pretty high at 257. ASSESSMENT: Doing well from colon surgery, poorly controlled diabetes. PLAN: Medicine would like to keep her over the weekend to further work on her sugars. Can be discharged from my standpoint. We will need to follow up next week for staple removal. Job ID: [id number]
[2019-05-05] MEDS: Sodium Chloride 0.9% 1,000 ML IV SCH ×2 (18:31→18:32)
[2019-05-05] MEDS: Atorvastatin Calcium 40 MG TAB PO SCH (21:09)
[2019-05-05] MEDS: Mag-Al Plus 1200 MG/1200 MG/120 MG/30 ML UDCUP PO PRN (21:49)
[2019-05-06] MEDS: Sodium Chloride 0.9% 1,000 ML IV SCH ×3 (01:55→10:43)
[2019-05-06] MEDS: MEROPENEM 1 GM/50 ML 1 GM in Premix Bag 1 BAG IVPB SCH (04:08)
--- NOTE | 2019-05-06 04:26 | PDOC.EVN ---
Event Note - Event Note Event Note: Notified by ALESSANDRO Sierra, patient receiving IV Meropenem and no longer has IV access. Multiple failed attempted at placing a new line yesterday. Had IV access but has infiltrated. Possible plans for discharge, unclear if will go home on IV Meropenem, in which case would need PICC line placement, vs. PO antibiotics, as note has mentioned 10 days of antibiotics has been recommended. Will hold 4am dose of antibiotics. Patient afebrile and hemodynamically stable. Recent WCC normal. To be addressed with day team, as per discussion with Dr. Almonte.
[2019-05-06 05:15] LABS: ALT (SGPT) 32 U/L (8-55); AST (SGOT) 39 U/L (5-34); Albumin 3.2 g/dL (3.5-5.0); Alkaline Phosphatase 67 U/L (40-150); Anion Gap 10 mmol/L (10-20); BUN (Urea Nitrogen) 10 mg/dL (9.8-20.1); Bilirubin, Total 0.4 mg/dL (0.2-1.2); Calc. Creatinine Clearance 102 mL/min (70-130); Carbon Dioxide 29 mmol/L (22-29); Chloride 102 mmol/L (98-107); Estimated GFR-MDRD 66; Globulin 2.7 g/dL (2.4-3.5); Glucose 222 mg/dL (70-105); Potassium 3.6 mmol/L (3.5-5.1); Protein, Total 5.9 g/dL (6.0-8.3); Sodium 137 mmol/L (136-145)
[2019-05-06] MEDS: glipiZIDE 5 MG TAB PO SCH (07:06)
[2019-05-06] MEDS: Losartan/Hydrochlorothiazide 100 mg/25 mg Tablet PO SCH (09:21)
[2019-05-06] MEDS: Fenofibrate 48 MG TAB PO SCH (09:21)
[2019-05-06] MEDS: Ezetimibe 10 MG TAB PO SCH (09:21)
[2019-05-06] MEDS: Venlafaxine HCl XR 150 MG CAP PO SCH (09:21)
[2019-05-06] MEDS: Insulin Glargine 30 UNITS in Pre-Filled Syringe 1 EACH SC SCH ×2 (09:22→20:46)
[2019-05-06] MEDS: Pantoprazole 40 MG VIAL IVP SCH (09:22)
[2019-05-06] MEDS: Enoxaparin Sodium 40 MG/0.4 ML SYRINGE SC SCH ×2 (10:12→10:45)
--- NOTE | 2019-05-06 10:42 | PRG ---
DATE OF SERVICE: 05/06/2019 SUBJECTIVE: Ms. Glez is doing well from a surgical standpoint. She is tolerating her diet. She is ambulatory. Her jameson have been removed from her wound. OBJECTIVE: She is afebrile. Vital signs are stable. Her abdomen is soft and nontender. She has stool in her bag. Ostomy mucosa is pink. There is no evidence of wound infection. ASSESSMENT: Postop sigmoid colectomy colostomy. PLAN: Ready for discharge from a surgical standpoint any time, she is still monitoring and controlling her blood sugars from the medical standpoint. Job ID: [id number]
[2019-05-06] MEDS: HYDROcodone/Acetaminophen 10/325 mg Tablet PO PRN ×2 (10:56→20:55)
[2019-05-06] MEDS: Insulin Regular 300 UNITS/3 ML VIAL SC PRN (12:48)
--- NOTE | 2019-05-06 13:59 | PDOC.HOSPP ---
- Subjective Encounter Date: 05/06/19 Encounter Time: 08:20 Subjective: Pt seen for followup re: DM2. No complaints today. - Objective Vital Signs & Weight: Vital Signs (12 hours) Temp Pulse Resp BP Pulse Ox 05/06/19 13:33 72 16 97 05/06/19 12:27 99 F 78 16 142/70 H 95 05/06/19 09:20 146/78 H 05/06/19 08:39 98.4 F 103 H 18 187/77 H 94 L 05/06/19 08:05 94 L 05/06/19 07:23 79 16 94 L 05/06/19 03:08 98.5 F 77 18 127/74 94 L Weight Weight 200 lb Most Recent Monitor Data Heart Rate from ECG 81 NIBP 141/75 NIBP BP-Mean 97 Respiration from ECG 17 SpO2 96 I&O: 05/05/19 05/06/19 05/07/19 06:59 06:59 06:59 Intake Total 2550 850 Output Total 1280 450 Balance 1270 400 Result Diagrams: 05/05/19 08:47 05/06/19 04:29 Additional Labs: Accuchecks 05/06/19 05/06/19 05/05/19 12:31 05:37 20:35 POC Glucose 164 H 206 H 217 H 05/05/19 17:28 POC Glucose 202 H Labs and MARs reviewed by nc Hospitalist ROS - Review of Systems Cardiovascular: denies: chest pain, palpitations, orthopnea, paroxysmal noc. dyspnea, edema, light headedness Gastrointestinal: denies: nausea, vomiting, abdominal pain, diarrhea, constipation, melena, hematochezia - Medication Medications: Active Medications Generic Name Dose Route Start Last Admin Trade Name Freq PRN Reason Stop Dose Admin Hydrocodone Bitart/Acetaminophen 1 tab 05/03/19 10:09 05/05/19 03:09 [place] 10/325 PO 1 tab Q4H PRN Administration Pain (1-4) Hydrocodone Bitart/Acetaminophen 2 tab 05/03/19 10:10 05/06/19 10:56 [place] 10/325 PO 2 tab Q4H PRN Administration Pain (5-10) Al Hydroxide/Mg Hydroxide 30 ml 05/04/19 11:54 05/05/19 21:49 Maalox Plus PO 30 ml Q6H PRN Administration Heartburn or Indigestion Albuterol/Ipratropium 3 ml 05/03/19 01:00 05/06/19 13:33 Duoneb NEB 3 ml [id number] GOKUL Administration Atorvastatin Calcium 80 mg 05/04/19 21:00 05/05/19 21:09 Lipitor PO 80 mg HS GOKUL Administration Diphenhydramine HCl 25 mg 05/01/19 12:47 05/04/19 20:35 Benadryl PO 25 mg Q3H PRN Administration Itching Ezetimibe 10 mg 05/05/19 09:00 05/06/19 09:21 Zetia PO 10 mg DAILY GOKUL Administration Enoxaparin Sodium 40 mg 05/06/19 09:00 05/06/19 10:45 Lovenox SC 40 mg 09 GOKUL Administration Fenofibrate 48 mg 05/05/19 09:00 05/06/19 09:21 Tricor PO 48 mg DAILY GOKUL Administration Glipizide 5 mg 05/06/19 07:30 05/06/19 07:06 Glucotrol PO 5 mg DAILY-AC GOKUL Administration HCTZ/Losartan Potassium 1 tab 05/05/19 09:00 05/06/19 09:21 Hyzaar 100/25 PO 1 tab DAILY GOKUL Administration Sodium Chloride 1,000 mls @ 120 mls/hr 05/01/19 11:45 05/06/19 10:43 Normal Saline 0.9% IV Not Given .Q8H20M GOKUL Fentanyl Citrate 2,000 mcg/ 100 mls @ 0 mls/hr 05/01/19 12:47 05/02/19 20:39 Sodium Chloride IV 100 mls INF PRN Administration Pain As Directed Insulin Glargine 30 units/ 0.3 mls @ 0 mls/hr 05/04/19 21:00 05/06/19 09:22 Miscellaneous Medication SC 0.3 mls BID GOKUL Administration Insulin Human Regular 0 units 05/02/19 14:56 05/06/19 12:48 Humulin R SC 2 unit .MODERATE SLIDING SC PRN Administration Moderate Correctional Scale Ondansetron HCl 4 mg 05/01/19 12:47 05/04/19 00:24 Zofran IVP 4 mg Q6H PRN Administration Nausea/Vomiting Pantoprazole Sodium 40 mg 05/05/19 09:00 05/06/19 09:22 Protonix IVP Not Given DAILY GOKUL Sodium Chloride 10 ml 05/01/19 01:14 05/05/19 21:09 Flush - Normal Saline IVF 10 ml PRN PRN Administration Saline Flush Tramadol HCl 100 mg 05/03/19 10:10 05/04/19 16:11 Ultram PO 100 mg Q6H PRN Administration Pain (5-10) Venlafaxine HCl 150 mg 05/05/19 09:00 05/06/19 09:21 Effexor Xr PO 150 mg DAILY GOKUL Administration - Exam General Appearance: NAD Eye: anicteric sclera ENT: moist mucosa Neck: supple Heart: RRR Respiratory: CTAB Gastrointestinal: soft, non-tender Gastrointestinal - other findings: ostomy Extremities: no clubbing Neurological: no weakness Psychiatric: normal affect, normal behavior Hosp A/P (1) DM type 2 (diabetes mellitus, type 2) Status: Chronic Qualifiers: Diabetes mellitus terminal carman insulin use: without jail use (2) Dyslipidemia Code(s): E78.5 - HYPERLIPIDEMIA, UNSPECIFIED Status: Chronic (3) HTN (hypertension) Code(s): I10 - ESSENTIAL (PRIMARY) HYPERTENSION Status: Chronic Qualifiers: Hypertension type: essential hypertension Qualified Code(s): I10 - Essential (primary) hypertension - Plan Pt will be advised to resume home medications (Trulicity and Humulin-R U-500) when she goes home and to monitor her accuchecks and followup with PCP. Switch to oral antibiotics and observe. Likely home in 24 hours.
[2019-05-06] MEDS: metroNIDAZOLE 500 MG TAB PO SCH ×2 (16:07→20:46)
[2019-05-06] MEDS: Mag-Al Plus 1200 MG/1200 MG/120 MG/30 ML UDCUP PO PRN (20:46)
[2019-05-06] MEDS: diphenhydrAMINE 25 MG CAP PO PRN (20:46)
[2019-05-06] MEDS: Atorvastatin Calcium 40 MG TAB PO SCH (20:46)
[2019-05-07] MEDS: glipiZIDE 5 MG TAB PO SCH (06:01)
[2019-05-07 08:00] VITALS: BP 127/71; TEMP 97.9
[2019-05-07] MEDS: Sodium Chloride 0.9% 1,000 ML IV SCH (08:39)
[2019-05-07] MEDS ORDERED: Enoxaparin Sodium 40 MG/0.4 ML SYRINGE SC SCH (09:00)
[2019-05-07] MEDS: Enoxaparin Sodium 40 MG/0.4 ML SYRINGE SC SCH (09:10)
[2019-05-07] MEDS: Losartan/Hydrochlorothiazide 100 mg/25 mg Tablet PO SCH (09:14)
[2019-05-07] MEDS: HYDROcodone/Acetaminophen 10/325 mg Tablet PO PRN (09:14)
[2019-05-07] MEDS: Venlafaxine HCl XR 150 MG CAP PO SCH (09:15)
[2019-05-07] MEDS: metroNIDAZOLE 500 MG TAB PO SCH (09:15)
[2019-05-07] MEDS: Insulin Glargine 30 UNITS in Pre-Filled Syringe 1 EACH SC SCH (09:15)
[2019-05-07] MEDS: Ezetimibe 10 MG TAB PO SCH (09:15)
[2019-05-07] MEDS: Fenofibrate 48 MG TAB PO SCH (09:15)
--- NOTE | 2019-05-07 10:04 | DIS ---
DATE OF ADMISSION: 05/01/2019 DATE OF DISCHARGE: 05/07/2019 DISCHARGE DIAGNOSIS: Sigmoid diverticulitis. PROCEDURES: Sigmoid colectomy, anastomosis, and ileostomy by Dr. Aguillon without complication. CONDITION ON DISCHARGE: Improved. STAFF: Dr. Aguillon. HOSPITAL COURSE: The patient had intractable diverticulitis that required surgery. He was able to perform sigmoid colectomy, primary anastomosis. She diverted with ileostomy. Postop course was uneventful except for high sugars. Medicine consult was obtained for help with this. On the day of discharge, Medicine says she is cleared to go home to resume her home medicines. Prescriptions for [place], Zofran, Levaquin, and Flagyl were sent to her pharmacy by me. She is going to follow up with Dr. Aguillon in a week for staple removal. Job ID: [id number]
== END 2019-05-07 12:00 | disposition home or self-care (01) | DRG 330 ==
LOC: ERS 23:23 → SURG A 05-01 00:08 → IMCU/EMU 05-01 12:21 → SURG B 05-03 16:18
PROVIDERS: ADMIT Surgery; ATTEND Surgery
PROC: 0D1B0Z4 Bypass Ileum to Cutaneous, Open Approach (ICD-10-PCS; principal; 2019-05-01)
PROC: 0DTN0ZZ Resection of Sigmoid Colon, Open Approach (ICD-10-PCS; 2019-05-01)
PROC: 0DNN0ZZ Release Sigmoid Colon, Open Approach (ICD-10-PCS; 2019-05-01)
DX: K57.20 Diverticulitis of large intestine with perforation and abscess without bleeding (principal); K56.609 Unspecified intestinal obstruction, unspecified as to partial versus complete obstruction; E11.9 Type 2 diabetes mellitus without complications; I10 Essential (primary) hypertension; E78.5 Hyperlipidemia, unspecified; E66.9 Obesity, unspecified; F17.210 Nicotine dependence, cigarettes, uncomplicated; Z90.710 Acquired absence of both cervix and uterus; Z88.8 Allergy status to other drugs, medicaments and biological substances; Z98.51 Tubal ligation status; Z68.34 Body mass index [BMI] 34.0-34.9, adult
CPT/HCPCS: 36415; 36416; 80048; 80053; 83036; 85025; 87070; 87077; 87186; 87205; 88307; 93005; 93010; 94640; 96360; 96374; C9113; J0131; J0670; J1650; J1815; J1885; J2185; J2250; J2270; J2405; J2704; J3010; J3490; J7620; Q0163; S0028

== ENCOUNTER 2019-06-20 10:28 | Outpatient (CLI) | payer BC ==
[2019-06-20] MEDS ORDERED: MD-Gastroview 120 ML BOT ONE (12:00)
--- NOTE | 2019-06-20 13:27 | RAD ---
Gastrografin enema: HISTORY: Patient with history of anastomosis of rectosigmoid colon this examination was done specific ally for evaluation for leak in this region after discussion with Dr. Aguillon. COMPARISON: None. FINDINGS: Gastrografin was introduced in the rectum in a retrograde fashion without difficulty. There is no leakage in the region of the rectosigmoid colon contrast was extended to beyond the splenic flexure. Postevacuation film was also unremarkable. IMPRESSION: No evidence of leak or stenosis at anastomosis.
== END 2019-06-20 10:29 | disposition home or self-care (01) ==
LOC: RAD 10:28
PROVIDERS: ATTEND Surgery
DX: K57.41 Diverticulitis of both small and large intestine with perforation and abscess with bleeding (principal)
CPT/HCPCS: 74280; Q9963

== ENCOUNTER 2019-06-28 06:50 | Outpatient (CLI) | payer BC ==
[2019-06-28 12:55] LABS: #Basophils 0.1 thou/uL (0.0-0.2); #Eosinphils 0.2 thou/uL (0.0-0.7); #Lymphocytes 2.2 thou/uL (1.20-3.40); #Monocytes 0.6 thou/uL (0.11-0.59); #Neutrophils 4.7 thou/uL (1.40-6.50); %Eosinophils 2.8 % (0.0-10.0); %Lymphocytes 28.6 % (21.0-51.0); %Monocytes 7.3 % (0.0-10.0); %Neutrophils 60.4 % (42.0-75.0); Mean Corpuscular HGB CONC 33.9 g/dL (32.0-36.0); Mean Corpuscular Hemoglobin 31.7 pg (27.0-31.0); Mean Corpuscular Volume 93.2 fL (78.0-98.0); Mean Platelet Volume 6.9 fL (7.4-10.4); Platelet Count 368 thou/uL (130-400); RBC Distribution Width 12.2 % (11.5-14.5); Red Blood Cell (RBC) Count 4.11 mill/uL (4.20-5.40); White Blood Cell (WBC) Count 7.8 thou/uL (4.8-10.8)
[2019-06-28 13:20] LABS: ALT (SGPT) 22 U/L (8-55); AST (SGOT) 22 U/L (5-34); Albumin 4.8 g/dL (3.5-5.0); Alkaline Phosphatase 60 U/L (40-110); Anion Gap 16 mmol/L (10-20); BUN (Urea Nitrogen) 21 mg/dL (9.8-20.1); Bilirubin, Total 0.6 mg/dL (0.2-1.2); Calc. Creatinine Clearance 0 mL/min (70-130); Calcium 10.2 mg/dL (7.8-10.44); Carbon Dioxide 23 mmol/L (22-29); Chloride 102 mmol/L (98-107); Estimated GFR-MDRD 39; Globulin 2.5 g/dL (2.4-3.5); Glucose 318 mg/dL (70-105); Potassium 4.6 mmol/L (3.5-5.1); Protein, Total 7.3 g/dL (6.0-8.3); Sodium 136 mmol/L (136-145)
--- NOTE | 2019-07-02 16:12 | EKG ---
Test Reason : Blood Pressure : / mmHG Vent. Rate : 073 BPM Atrial Rate : 073 BPM P-R Int : 144 ms QRS Dur : 094 ms QT Int : 394 ms P-R-T Axes : 051 077 062 degrees QTc Int : 434 ms Normal sinus rhythm Normal ECG When compared with ECG of 01-MAY-2019 07:14, No significant change was found Confirmed by DR. Cathy WALKER ([id number]) on 07/02/2019 4:11:41 PM Referred By: RAVEN Confirmed By:DR. Cathy WALKER
== END 2019-06-28 06:51 | disposition home or self-care (01) ==
LOC: LABBT 06:50
PROVIDERS: ATTEND Surgery
DX: Z01.818 Encounter for other preprocedural examination (principal); K57.41 Diverticulitis of both small and large intestine with perforation and abscess with bleeding
CPT/HCPCS: 80053; 85025; 93005; 93010

== ENCOUNTER 2019-06-28 11:15 | Inpatient (IN) | payer BC ==
[2019-06-28 11:57] VITALS: BMI 36.2
[2019-07-03] MEDS ORDERED: cefOXitin 2 GM VIAL ONE (06:56)
[2019-07-03] MEDS ORDERED: Sodium Chloride 0.9% 100 ML ONE (06:56)
[2019-07-03] MEDS ORDERED: Fentanyl 100 MCG/2 ML VIAL ONE ×3 (08:20→10:34)
[2019-07-03] MEDS ORDERED: Promethazine HCl 25 MG/ML VIAL IM PRN ×2 (09:51→10:01)
[2019-07-03] MEDS ORDERED: Morphine 4 MG/ML VIAL SLOW IVP PRN (09:51)
[2019-07-03] MEDS ORDERED: Morphine 2 MG/ML SYRINGE SLOW IVP PRN (09:51)
[2019-07-03] MEDS ORDERED: Ondansetron PF 4 MG/2 ML Vial IVP PRN (09:51)
[2019-07-03] MEDS ORDERED: hydrALAZINE 20 MG/ML VIAL SLOW IVP PRN (09:51)
[2019-07-03] MEDS ORDERED: Morphine 10 MG/ML VIAL SLOW IVP PRN (09:51)
[2019-07-03] MEDS ORDERED: Labetalol HCl 100 MG/20 ML VIAL ONE (09:58)
[2019-07-03] MEDS ORDERED: Ondansetron HCl/PF 4 MG/2 ML Vial IVP PRN (10:01)
[2019-07-03] MEDS ORDERED: Rocuronium Bromide 10 MG/ML (10ML VIAL) ONE (10:43)
[2019-07-03] MEDS ORDERED: Esmolol 100 MG/10 ML VIAL ONE (10:43)
[2019-07-03] MEDS ORDERED: PROPOFOL 200 MG/20 ML VIAL ONE (10:43)
[2019-07-03] MEDS ORDERED: Ondansetron PF 4 MG/2 ML Vial ONE (10:43)
[2019-07-03] MEDS ORDERED: diphenhydrAMINE 50 MG/ML VIAL ONE (10:43)
[2019-07-03] MEDS ORDERED: HYDROmorphone 0.5 MG/0.5 ML SYRINGE ONE ×2 (10:55→11:13)
--- NOTE | 2019-07-03 11:23 | OP ---
DATE OF PROCEDURE: 07/03/2019 PREOPERATIVE DIAGNOSIS: Unwanted ileostomy. PROCEDURE PERFORMED: Ileostomy closure. INDICATIONS: This is a 54-year-old female, who had an emergency sigmoid resection for perforated diverticulitis. At that time, she had primary repair of the colon with diverting ileostomy. She since allowed that to heal and barium enema shows that the colon is patent without evidence of leak. FINDINGS: Quite a bit of adhesions underneath the fascia at the ileostomy. I took a lot of dissection. I had to resect some small bowel to do the reanastomosis. DESCRIPTION OF PROCEDURE: After informed consent was obtained, the patient was taken to the operating room and given general endotracheal anesthesia. She was placed in the supine position and a pursestring of 0 silk was used to temporarily close the ileostomy. Then, her abdomen was prepped and draped in usual fashion. An elliptical incision was performed to excise the ostomy. Then, dissection was performed through the subcutaneous tissue very carefully and slowly to dissect out the bowel. When down to the fascia, there continued to have quite a bit of adhesions. It was careful dissection performed along the fascia to free up the small bowel, but the actual ileostomy was fairly banged up, so I elected to do a resection of the ostomy. The both ends, both proximal and distal, efferent and afferent limbs were divided utilizing the JOSÉ LUIS. The mesentery divided between clamps and tied with 2-0 silk suture. Then, the antimesenteric staple line was excised. A JOSÉ LUIS was inserted, one limb in each limb of the bowel, closed, fired and then the common enterotomy was closed transversely with a running 3-0 V-Loc Strattice PDS. The mesentery was closed with 3-0 Vicryl suture. This anastomosis was returned to the abdomen. Hemostasis was assured. The fascia was closed with a running #1 PDS. The subcu was thoroughly irrigated. Hemostasis was achieved with electrocautery. Subcu closed with interrupted 3-0 Vicryl and the skin closed with skin saeid. A sterile bandage was applied. The patient tolerated the procedure well, transferred to Recovery in good condition. Sponge and needle count verified correct x2. Job ID: [id number]
[2019-07-03] MEDS: Ketorolac Tromethamine 30 MG/ML VIAL IVP SCH ×3 (12:58→23:13)
[2019-07-03] MEDS: Sodium Chloride 0.9% 1,000 ML IV SCH ×2 (13:09→20:15)
[2019-07-03] MEDS: Acetaminophen 1,000 MG in Premix Bag 1 BAG IVPB SCH ×2 (13:19→20:15)
[2019-07-03] MEDS: Insulin Regular 300 UNITS/3 ML VIAL SC PRN ×3 (13:25→23:39)
[2019-07-03] MEDS: cefOXitin 2 GM in Sodium Chloride 0.9% 100 ML IVPB SCH ×2 (17:51→23:14)
[2019-07-03] MEDS: Famotidine/PF 20 mg/2ml Vial SLOW IVP SCH (20:16)
[2019-07-03] MEDS: Famotidine 20 MG TAB PO SCH (20:22)
[2019-07-04] MEDS: Acetaminophen 1,000 MG in Premix Bag 1 BAG IVPB SCH ×2 (02:45→08:02)
[2019-07-04] MEDS: Sodium Chloride 0.9% 1,000 ML IV SCH ×3 (02:48→12:44)
[2019-07-04] MEDS: Ketorolac Tromethamine 30 MG/ML VIAL IVP SCH ×3 (05:40→18:14)
[2019-07-04] MEDS: Insulin Regular 300 UNITS/3 ML VIAL SC PRN ×2 (05:44→12:30)
[2019-07-04 05:48] LABS: #Eosinphils 0.2 thou/uL (0.0-0.7); #Lymphocytes 0.8 thou/uL (1.20-3.40); #Monocytes 0.3 thou/uL (0.11-0.59); #Neutrophils 3.9 thou/uL (1.40-6.50); %Basophils 0.5 % (0.0-1.0); %Monocytes 6.3 % (0.0-10.0); %Neutrophils 75.2 % (42.0-75.0); Hemoglobin 11.2 g/dL (12.0-16.0); Mean Corpuscular HGB CONC 33.9 g/dL (32.0-36.0); Mean Corpuscular Hemoglobin 31.1 pg (27.0-31.0); Mean Corpuscular Volume 91.6 fL (78.0-98.0); Mean Platelet Volume 6.7 fL (7.4-10.4); Platelet Count 282 thou/uL (130-400); Red Blood Cell (RBC) Count 3.61 mill/uL (4.20-5.40); White Blood Cell (WBC) Count 5.1 thou/uL (4.8-10.8)
[2019-07-04] MEDS ORDERED: Enoxaparin Sodium 40 MG/0.4 ML SYRINGE SC SCH (06:00)
[2019-07-04 06:10] LABS: Anion Gap 8 mmol/L (10-20); BUN (Urea Nitrogen) 18 mg/dL (9.8-20.1); Calc. Creatinine Clearance 74 mL/min (70-130); Calcium 8.4 mg/dL (7.8-10.44); Carbon Dioxide 27 mmol/L (22-29); Chloride 105 mmol/L (98-107); Estimated GFR-MDRD 43; Glucose 233 mg/dL (70-105); Potassium 4.3 mmol/L (3.5-5.1); Sodium 136 mmol/L (136-145)
[2019-07-04] MEDS: Famotidine/PF 20 mg/2ml Vial SLOW IVP SCH (08:02)
[2019-07-04] MEDS: Famotidine 20 MG TAB PO SCH (08:20)
[2019-07-04] MEDS ORDERED: FLU VACC QS2019-20(6MOS UP)/PF 60 MCG/0.5 ML SYRINGE IM ONE (09:00)
--- NOTE | 2019-07-04 12:16 | PRG ---
DATE OF SERVICE: 07/04/2019 SUBJECTIVE: The patient is doing well. Pain is minimal. She denies nausea or vomiting. She has passed some gas. OBJECTIVE: VITAL SIGNS: On examination; her temperature is 98.3, pulse 67, and blood pressure 111/61. GENERAL: She looks good. A little bit of serosanguineous drainage on her bandage. ABDOMEN: Soft and nondistended. : Good urine output. LABORATORY DATA: Her white count is 5, H and H are 11/33, and platelet count 282. Electrolytes are fine. ASSESSMENT: Doing well. PLAN: Discontinue [place]. Advance diet. Home soon. Job ID: [id number]
[2019-07-04 16:44] VITALS: BP 129/80; TEMP 99.2
[2019-07-05] MEDS ORDERED: Enoxaparin Sodium 40 MG/0.4 ML SYRINGE SC SCH (09:00)
--- NOTE | 2019-07-05 11:29 | DIS ---
DATE OF ADMISSION: 07/03/2019 DATE OF DISCHARGE: 07/04/2019 DISCHARGE DIAGNOSIS: Unwanted ileostomy. PROCEDURES DURING ADMISSION: Ileostomy closure. HOSPITAL COURSE: The patient was admitted, taken to the operating room where she underwent closure of ileostomy. She is doing fine. She is passing gas, tolerating liquids. The pain is well controlled on p.o. medications. She is discharged home on tramadol and Zofran. She will follow up with me in 10 days for staple removal. Job ID: [id number]
== END 2019-07-04 18:10 | disposition home or self-care (01) | DRG 331 ==
LOC: SURG A 07-03 06:30
PROVIDERS: ADMIT Surgery; ATTEND Surgery
PROC: 0DBB0ZZ Excision of Ileum, Open Approach (ICD-10-PCS; principal; 2019-07-03)
DX: Z43.2 Encounter for attention to ileostomy (principal); I10 Essential (primary) hypertension; E78.5 Hyperlipidemia, unspecified; E11.9 Type 2 diabetes mellitus without complications; M19.90 Unspecified osteoarthritis, unspecified site; F17.210 Nicotine dependence, cigarettes, uncomplicated; F32.9 Major depressive disorder, single episode, unspecified; J30.2 Other seasonal allergic rhinitis; K66.0 Peritoneal adhesions (postprocedural) (postinfection); Z90.710 Acquired absence of both cervix and uterus; Z98.51 Tubal ligation status; Z90.49 Acquired absence of other specified parts of digestive tract; Z88.1 Allergy status to other antibiotic agents; Z88.8 Allergy status to other drugs, medicaments and biological substances; Z79.4 Long term (current) use of insulin; Z79.82 Long term (current) use of aspirin; Z79.899 Other long term (current) drug therapy; Z88.5 Allergy status to narcotic agent
CPT/HCPCS: 36415; 36416; 80048; 85025; 88304; 90471; 90686; G0008; J0131; J0694; J1170; J1200; J1650; J1815; J1885; J2270; J2405; J2704; J3010; J3490; S0028

== ENCOUNTER 2020-10-24 15:50 | Outpatient (CLI) | payer BC ==
[2020-10-24 18:59] LABS: #Eosinphils 0.2 10x3/uL (0.0-0.5); #Monocytes 0.5 10x3/uL (0.0-1.1); #Neutrophils 3.5 10x3/uL (1.5-8.4); %Basophils 0.6 % (0.0-2.0); %Lymphocytes 33.8 % (18.0-47.0); %Monocytes 8.1 % (0.0-10.0); Hemoglobin 12.1 g/dL (12.0-15.5); Mean Corpuscular HGB CONC 32.6 g/dL (32.0-36.0); Mean Corpuscular Hemoglobin 30.7 pg (27.0-33.0); Mean Corpuscular Volume 94.2 fl (81.6-98.3); Mean Platelet Volume 9.4 fl (7.4-10.4); Platelet Count 407 10x3/uL (150-450); RBC Distribution Width 13.2 % (11.5-14.5); Red Blood Cell (RBC) Count 3.94 10x6/uL (3.90-5.03); White Blood Cell (WBC) Count 6.4 10x3/uL (3.5-10.5)
[2020-10-24 19:09] LABS: ALT (SGPT) 33 U/L (8-55); AST (SGOT) 35 U/L (5-34); Albumin 4.5 g/dL (3.5-5.0); Alkaline Phosphatase 45 U/L (40-110); Anion Gap 12 mmol/L (10-20); BUN (Urea Nitrogen) 24 mg/dL (9.8-20.1); Bilirubin, Total 0.3 mg/dL (0.2-1.2); Calc. Creatinine Clearance 0 mL/min (70-130); Calcium 9.9 mg/dL (7.8-10.44); Carbon Dioxide 28 mmol/L (22-29); Chloride 105 mmol/L (98-107); Globulin 2.2 g/dL (2.4-3.5); Glucose 161 mg/dL (70-105); Potassium 4.5 mmol/L (3.5-5.1); Protein, Total 6.7 g/dL (6.0-8.3); Sodium 140 mmol/L (136-145)
[2020-10-25 04:33] LABS: SARS-CoV-2 PCR by NAA Not Detected (NotDetected)
== END 2020-10-24 15:51 | disposition home or self-care (01) ==
LOC: LABBT 15:50
PROVIDERS: ATTEND Surgery
DX: Z01.818 Encounter for other preprocedural examination (principal); K43.2 Incisional hernia without obstruction or gangrene; Z20.822 Contact with and (suspected) exposure to COVID-19
CPT/HCPCS: 80053; 85025; 87635; 93005; 93010; U0003; U0005

== ENCOUNTER 2020-10-28 05:57 | Inpatient (IN) | payer BC ==
[2020-10-25 12:25] VITALS: BMI 37.2
[2020-10-28] MEDS ORDERED: Fentanyl 100 MCG/2 ML VIAL ONE ×3 (06:10→11:20)
[2020-10-28] MEDS ORDERED: Dexmedetomidine 200 MCG/2 ML VIAL ONE (06:10)
[2020-10-28] MEDS ORDERED: Bupivacaine 0.25% HCL 30 ML VIAL ONE (06:49)
[2020-10-28] MEDS ORDERED: XYLOCAINE 2%-EPI 1:100,000 20 ML VIAL ONE (06:49)
[2020-10-28] MEDS ORDERED: ePHEDrine 50 MG/ML VIAL ONE (07:47)
[2020-10-28] MEDS ORDERED: Glycopyrrolate 0.2 MG/ML 5 ML SYRINGE ONE (07:47)
[2020-10-28] MEDS ORDERED: Dexamethasone 20 MG/5 ML VIAL ONE (07:47)
[2020-10-28] MEDS ORDERED: PHENYLEPHRINE-NS 100 MCG/ML 10 ML SYRINGE ONE (07:47)
[2020-10-28] MEDS ORDERED: Rocuronium Bromide 10 MG/ML (10ML VIAL) ONE (07:47)
[2020-10-28] MEDS ORDERED: Ondansetron PF 4 MG/2 ML Vial ONE (07:47)
[2020-10-28] MEDS ORDERED: Lidocaine 1% PF 5 ML VIAL ONE (07:47)
[2020-10-28] MEDS ORDERED: PROPOFOL 200 MG/20 ML VIAL ONE (07:47)
[2020-10-28] MEDS ORDERED: Promethazine HCl 25 MG/ML VIAL IM PRN ×3 (09:13→11:28)
[2020-10-28] MEDS ORDERED: Dextrose 5% in Water 1,000 ML IV PRN (09:13)
[2020-10-28] MEDS ORDERED: Morphine 2 MG/ML VIAL SLOW IVP PRN (09:13)
[2020-10-28] MEDS ORDERED: Ondansetron PF 4 MG/2 ML Vial IVP PRN (09:13)
[2020-10-28] MEDS ORDERED: Dextrose 50% Abboject 50 ML SYRINGE SLOW IVP PRN (09:13)
[2020-10-28] MEDS ORDERED: hydrALAZINE 20 MG/ML VIAL SLOW IVP PRN (09:13)
[2020-10-28] MEDS ORDERED: HYDROcodone/Acetaminophen 10/325 mg Tablet PO PRN (09:13)
[2020-10-28] MEDS ORDERED: Mag-Al 1200 mg/1200 mg/30 ML UDCUP PO PRN (09:13)
[2020-10-28] MEDS ORDERED: Calcium Carbonate 500 MG ChewTAB PO PRN (09:13)
[2020-10-28] MEDS ORDERED: SUGAMMADEX SODIUM 200 MG/2 ML VIAL ONE (09:18)
[2020-10-28] MEDS ORDERED: Promethazine HCl 25 MG/ML VIAL SLOW IVP PRN ×2 (11:27→11:28)
[2020-10-28] MEDS ORDERED: Ondansetron HCl/PF 4 MG/2 ML Vial IVP PRN ×2 (11:27→11:28)
[2020-10-28] MEDS ORDERED: Ketorolac Tromethamine 30 MG/ML VIAL IVP SCH (12:00)
[2020-10-28] MEDS ORDERED: Morphine 4 MG/ML VIAL ONE (13:59)
[2020-10-28] MEDS ORDERED: cefOXitin 2 GM in Sodium Chloride 0.9% 100 ML IVPB SCH (14:00)
[2020-10-28] MEDS: Morphine 4 MG/ML VIAL SLOW IVP PRN ×3 (14:01→21:50)
[2020-10-28] MEDS: Sodium Chloride 0.9% 1,000 ML IV SCH ×2 (14:04→18:26)
[2020-10-28] MEDS: HYDROcodone/Acetaminophen 10/325 mg Tablet PO PRN (15:51)
[2020-10-28] MEDS: Insulin Regular 300 UNITS/3 ML VIAL SC PRN (18:22)
[2020-10-28] MEDS: Famotidine/PF 20 mg/2ml Vial SLOW IVP SCH (21:37)
[2020-10-28] MEDS: Famotidine 20 MG TAB PO SCH (21:46)
[2020-10-28] MEDS: cefOXitin Sodium/Dextrose,Iso 2 GM in Premix Bag 1 BAG IVPB SCH (22:49)
[2020-10-29] MEDS: HYDROcodone/Acetaminophen 10/325 mg Tablet PO PRN ×2 (01:52→08:55)
[2020-10-29] MEDS: cefOXitin Sodium/Dextrose,Iso 2 GM in Premix Bag 1 BAG IVPB SCH (05:25)
[2020-10-29] MEDS: Sodium Chloride 0.9% 1,000 ML IV SCH (05:25)
[2020-10-29] MEDS: Insulin Regular 300 UNITS/3 ML VIAL SC PRN ×2 (05:51→13:29)
[2020-10-29] MEDS: Morphine 4 MG/ML VIAL SLOW IVP PRN (05:56)
[2020-10-29 06:40] LABS: #Eosinphils 0.1 thou/uL (0.0-0.7); #Lymphocytes 2.4 thou/uL (1.20-3.40); #Monocytes 0.9 thou/uL (0.11-0.59); #Neutrophils 7.1 thou/uL (1.40-6.50); %Basophils 0.2 % (0.0-1.0); %Eosinophils 0.6 % (0.0-10.0); %Lymphocytes 23.3 % (21.0-51.0); %Monocytes 8.1 % (0.0-10.0); %Neutrophils 67.8 % (42.0-75.0); Hemoglobin 11.8 g/dL (12.0-16.0); Mean Corpuscular HGB CONC 33.7 g/dL (32.0-36.0); Mean Corpuscular Volume 94.7 fL (78.0-98.0); Mean Platelet Volume 6.5 fL (7.4-10.4); Platelet Count 373 thou/uL (130-400); RBC Distribution Width 11.9 % (11.5-14.5); Red Blood Cell (RBC) Count 3.69 mill/uL (4.20-5.40); White Blood Cell (WBC) Count 10.5 thou/uL (4.8-10.8)
[2020-10-29 07:01] LABS: ALT (SGPT) 22 U/L (8-55); AST (SGOT) 24 U/L (5-34); Albumin 4.1 g/dL (3.5-5.0); Alkaline Phosphatase 40 U/L (40-110); Anion Gap 11 mmol/L (10-20); BUN (Urea Nitrogen) 21 mg/dL (9.8-20.1); Bilirubin, Total 0.5 mg/dL (0.2-1.2); Calc. Creatinine Clearance 57 mL/min (70-130); Calcium 8.6 mg/dL (7.8-10.44); Carbon Dioxide 26 mmol/L (22-29); Chloride 105 mmol/L (98-107); Globulin 2.5 g/dL (2.4-3.5); Glucose 244 mg/dL (70-105); Lipase 38 U/L (8-78); Potassium 4.1 mmol/L (3.5-5.1); Protein, Total 6.6 g/dL (6.0-8.3); Sodium 138 mmol/L (136-145)
[2020-10-29] MEDS: Famotidine 20 MG TAB PO SCH (08:55)
[2020-10-29] MEDS: Famotidine/PF 20 mg/2ml Vial SLOW IVP SCH (08:57)
[2020-10-29] MEDS ORDERED: Enoxaparin Sodium 40 MG/0.4 ML SYRINGE SC SCH (09:00)
[2020-10-29 13:43] VITALS: BP 179/74; TEMP 98.1
== END 2020-10-29 15:00 | disposition home or self-care (01) | DRG 355 ==
LOC: SDC 05:57 → ONC 09:14
PROVIDERS: ADMIT Surgery; ATTEND Surgery
PROC: 0WUF4JZ Supplement Abdominal Wall with Synthetic Substitute, Percutaneous Endoscopic Approach (ICD-10-PCS; principal; 2020-10-28)
DX: K43.2 Incisional hernia without obstruction or gangrene (principal); E66.01 Morbid (severe) obesity due to excess calories; Z90.49 Acquired absence of other specified parts of digestive tract; Z90.89 Acquired absence of other organs; Z90.710 Acquired absence of both cervix and uterus; Z68.37 Body mass index [BMI] 37.0-37.9, adult
CPT/HCPCS: 36415; 36416; 80053; 83690; 85025; J0690; J0694; J1100; J1650; J1815; J2270; J2405; J2704; J3010; J3490; S0020

== ENCOUNTER 2024-10-19 08:28 | Outpatient (CLI) | payer OTHER | END 2024-10-19 08:29 | disposition home or self-care (01) | LOC: BICMAMMO 08:28 | PROVIDERS: ATTEND Nurse Practitioner Family | DX: Z12.31 Encounter for screening mammogram for malignant neoplasm of breast (principal) | CPT/HCPCS: 77063; 77067 ==